=== PATIENT | male | born 2000 | race Caucasian/White ===

== ENCOUNTER 2023-05-28 23:06 | Emergency (ER) | payer MEDICAID ==
[~2023-05-28] VITALS: Ht 180.3 cm; Wt 117.9 kg
[2023-05-28 23:26] VITALS: BP 145/82; PULSE 95; RESP 20; TEMP 98; O2SAT 98
[2023-05-29] MEDS ORDERED: LOPERAMIDE 2 MG CAP PO ONE (00:10)
[2023-05-29] MEDS ORDERED: DICYCLOMINE HCL LIQUID 20 MG, ALUMINUM HYD/MAG/SIMETHICONE 30 ML, LIDOCAINE VISCOUS 2% ... PO ONE ×3 (00:10)
[2023-05-29] MEDS ORDERED: ONDANSETRON 4 MG ODT PO ONE (00:10)
[2023-05-29] MEDS ORDERED: DICYCLOMINE HCL LIQUID 10 MG/5 ML UDC ONE (00:14)
[2023-05-29] MEDS ORDERED: ALUMINUM HYD/MAG/SIMETHICONE 30 ML UDC ONE (00:14)
[2023-05-29] MEDS ORDERED: [UNRECOGNIZED DRUG - CODE] PO (00:16)
[2023-05-29] MEDS ORDERED: CIPR500T4 PO (00:16)
[2023-05-29] MEDS ORDERED: ATRO1TAB PO (00:16)
[2023-05-29] MEDS ORDERED: LACT1CAP63 PO (00:18)
[2023-05-29 01:11] VITALS: BP 138/85; PULSE 92; RESP 18; TEMP 98; O2SAT 96
== END 2023-05-29 01:11 | disposition home or self-care (01) ==
LOC: MED 23:06
DX: A05.9 Bacterial foodborne intoxication, unspecified (principal); K52.9 Noninfective gastroenteritis and colitis, unspecified; Z79.899 Other long term (current) drug therapy; Z79.2 Long term (current) use of antibiotics
CPT/HCPCS: 99284; Q0162